=== PATIENT | male | born 1980 | race Caucasian/White ===

== ENCOUNTER 2016-12-18 02:01 | Inpatient (IN) | payer SELFPAY ==
[2016-12-18] MEDS ORDERED: LORazepam 2 MG/ML MDV IVPUSH ONE (02:25)
[2016-12-18] MEDS ORDERED: Sodium Chloride 0.9% 10 ML Syringe FLUSH PRN (02:30)
[2016-12-18] MEDS ORDERED: Sodium Chloride 0.9% 1,000 ML IV SCH ×2 (02:30→09:15)
[2016-12-18] MEDS ORDERED: Folic Acid 50 MG/10 ML Bulk Vial IV ONE (02:31)
[2016-12-18] MEDS ORDERED: Thiamine 200 MG/2 ML MDV IV ONE (02:31)
[2016-12-18] MEDS ORDERED: Ondansetron 4 MG/2 ML SDV IVPUSH ONE (02:43)
--- NOTE | 2016-12-18 03:03 | EDM.PDOC ---
ED HPI SEIZURE COMPLAINT - General Chief Complaint: Neuro Symptoms/Deficits Stated Complaint: seizure Time Seen by Provider: 12/18/16 02:23 Source of Information: Reports: Patient, Family History Limitations: Reports: No limitations - History of Present Illness INITIAL COMMENTS - FREE TEXT/NARRATIVE: Reports of seizure activity prior to arrival. EMS called and did bring in. He did have some emesis. Self identifies as a regular drinker. Finishes a large vodka bottle every 2-3 days, perhaps more frequently. Last drink was yesterday at approximately 7-8 am. Smokes 1/2-1 PPD. Denies any other drug use. Has had one other episode of seizure while detoxing in the past. Denies any medical history for himself. No reported hallucinations visually or auditory. Symptom Onset Date: 12/18/16 Event Occurred (Where): home Event (Witnessed/Unwitnessed): witnessed Severity: mild Context: Reports: recent ETOH Pre Event Symptom(s): Reports: no other symptoms Event Symptoms: Reports: nausea/vomiting - Related Data Allergies/ADRs: Allergies Allergy/AdvReac Type Severity Reaction Status Date / Time No Known Drug Allergies Allergy Other Verified 01/03/16 16:32 dog hair Allergy Severe Difficulty Uncoded 01/03/16 16:32 Breathing Home Meds: Home Meds . [No Known Home Meds] 01/03/16 [History] Past Medical History - Past Health History Medical/Surgical History: Denies Medical/Surgical History Psychiatric History: Reports: Addiction Social & Family History - Tobacco Use Smoking Status *Q: Current Every Day Smoker Years of Tobacco use: 3 Packs/Tins Daily: 1 Used Tobacco, but Quit: No Second Hand Smoke Exposure: Yes - Alcohol Use Days Per Week of Alcohol Use: 7 Number of Drinks Per Day: 10 Total Drinks Per Week: 70 - Recreational Drug Use Recreational Drug Use: Yes Drug Use in Last 12 Months: Yes Recreational Drug Type: Reports: Marijuana/Hashish ED ROS GENERAL - Review of Systems Review Of Systems: See Below Constitutional: Reports: no symptoms HEENT: Reports: No symptoms Respiratory: Reports: No Symptoms Cardiovascular: Reports: No symptoms Endocrine: Reports: no symptoms GI/Abdominal: Reports: Nausea, Vomiting : Reports: no symptoms Musculoskeletal: Reports: no symptoms Skin: Reports: no symptoms Neurological: Reports: Tremors Psychiatric: Reports: No symptoms Hematologic/Lymphatic: Reports: no symptoms Immunologic: Reports: no symptoms - Physical Exam Exam: See Below Exam Limited By: No limitations General Appearance: alert, WD/WN, mild distress Eye Exam: bilateral eye: EOMI, PERRL Throat/Mouth: Normal inspection, Normal lips, Normal teeth, Normal gums, Normal oropharynx Head Exam: atraumatic, normocephalic Respiratory/Chest: no respiratory distress, lungs clear, no accessory muscle use Cardiovascular: normal peripheral pulses, no edema, no murmur, tachycardia GI/Abdominal: normal bowel sounds, soft, non tender Neuro Exam (Abbreviated): alert, oriented, CN II-XII intact, normal cognition, other (tremors) Extremities: normal inspection, normal range of motion, non-tender Psychiatric: normal affect, normal mood Skin Exam: Warm, Dry, Intact, Normal color, No rash Course - Vital Signs Last Recorded V/S: Last Vital Signs Temp 38.1 C 12/18/16 02:21 Pulse 134 H 12/18/16 02:21 Resp 16 12/18/16 02:21 BP 151/92 H 12/18/16 02:21 Pulse Ox 94 L 12/18/16 02:21 - Orders/Labs/Meds Orders: Active Orders 24 hr Category Date Time Status Patient Status [ADT] Routine ADT 12/18/16 02:46 Ordered EKG Documentation Completion [RC] STAT Care 12/18/16 02:43 Ordered C-REACTIVE PROTEIN [CHEM] Stat Lab 12/18/16 02:26 Ordered CBC WITH AUTO DIFF [HEME] Stat Lab 12/18/16 02:26 Ordered CK W CKMB [CHEM] Stat Lab 12/18/16 02:43 Ordered COMPREHENSIVE METABOLIC PN,CMP [CHEM] Stat Lab 12/18/16 02:26 Ordered ETHANOL BLOOD MEDICAL [CHEM] Stat Lab 12/18/16 02:26 Ordered INR,PT,PROTHROMBIN TIME [COAG] Stat Lab 12/18/16 02:43 Ordered MAGNESIUM [CHEM] Stat Lab 12/18/16 02:47 Ordered TROPONIN I [CHEM] Stat Lab 12/18/16 02:43 Ordered UA W/MICROSCOPIC [URIN] Stat Lab 12/18/16 02:26 Uncollected Sodium Chloride 0.9% @ 150 MLS/HR (1000ml) Med 12/18/16 02:30 Ordered Sodium Chloride 0.9% [Normal Saline] 1,000 ml IV ASDIRECTED Sodium Chloride 0.9% [Saline Flush] Med 12/18/16 02:30 Ordered 10 ml FLUSH ASDIRECTED PRN Saline Lock Insert [OM.PC] Routine Oth 12/18/16 02:30 Ordered Medication Orders Sodium Chloride (Normal Saline) 1,000 mls @ 150 mls/hr IV ASDIRECTED GIOVANA Sodium Chloride (Saline Flush) 10 ml FLUSH ASDIRECTED PRN PRN Reason: Keep Vein Open Meds: Medications Generic Name Dose Route Start Last Admin Trade Name Freq PRN Reason Stop Dose Admin Sodium Chloride 1,000 mls @ 150 mls/hr 12/18/16 02:30 Normal Saline IV ASDIRECTED GIOVANA Sodium Chloride 10 ml 12/18/16 02:30 Saline Flush FLUSH ASDIRECTED PRN Keep Vein Open Discontinued Medications Generic Name Dose Route Start Last Admin Trade Name Freq PRN Reason Stop Dose Admin Folic Acid 1 mg 12/18/16 02:31 Folic Acid IV 12/18/16 02:32 ONETIME ONE Lorazepam 0.5 mg 12/18/16 02:25 12/18/16 02:37 Ativan IVPUSH 12/18/16 02:26 0.5 mg ONETIME ONE Administration Ondansetron HCl 4 mg 12/18/16 02:43 Zofran IVPUSH 12/18/16 02:44 ONETIME ONE Thiamine HCl 100 mg 12/18/16 02:31 Vitamin B-1 IV 12/18/16 02:32 ONETIME ONE Departure - Departure Time of Disposition: 03:56 Disposition: Refer to Observation Condition: fair Clinical Impression: Alcohol abuse, Alcohol withdrawal syndrome Forms: ED Department Discharge - Problem List & Annotations (1) Alcohol withdrawal syndrome SNOMED Code(s): 224411486 Code(s): F10.239 - ALCOHOL DEPENDENCE WITH WITHDRAWAL, UNSPECIFIED Status: Acute Priority: Medium Current Visit: Yes (2) Nausea and vomiting SNOMED Code(s): 39775543 Code(s): R11.2 - NAUSEA WITH VOMITING, UNSPECIFIED Status: Acute Priority : Medium Current Visit: No - Problem List Review Problem List Initiated/Reviewed/Updated: Yes - My Orders Last 24 Hours: My Active Orders 12/18/16 02:26 C-REACTIVE PROTEIN [CHEM] Stat CBC WITH AUTO DIFF [HEME] Stat COMPREHENSIVE METABOLIC PN,CMP [CHEM] Stat ETHANOL BLOOD MEDICAL [CHEM] Stat UA W/MICROSCOPIC [URIN] Stat 12/18/16 02:30 Sodium Chloride 0.9% @ 150 MLS/HR (1000ml) Sodium Chloride 0.9% [Normal Saline] 1,000 ml IV ASDIRECTED Sodium Chloride 0.9% [Saline Flush] 10 ml FLUSH ASDIRECTED PRN Saline Lock Insert [OM.PC] Routine 12/18/16 02:43 EKG Documentation Completion [RC] STAT CK W CKMB [CHEM] Stat INR,PT,PROTHROMBIN TIME [COAG] Stat TROPONIN I [CHEM] Stat 12/18/16 02:46 Patient Status [ADT] Routine 12/18/16 02:47 MAGNESIUM [CHEM] Stat - Assessment/Plan Last 24 Hours: My Active Orders 12/18/16 02:26 C-REACTIVE PROTEIN [CHEM] Stat CBC WITH AUTO DIFF [HEME] Stat COMPREHENSIVE METABOLIC PN,CMP [CHEM] Stat ETHANOL BLOOD MEDICAL [CHEM] Stat UA W/MICROSCOPIC [URIN] Stat 12/18/16 02:30 Sodium Chloride 0.9% @ 150 MLS/HR (1000ml) Sodium Chloride 0.9% [Normal Saline] 1,000 ml IV ASDIRECTED Sodium Chloride 0.9% [Saline Flush] 10 ml FLUSH ASDIRECTED PRN Saline Lock Insert [OM.PC] Routine 12/18/16 02:43 EKG Documentation Completion [RC] STAT CK W CKMB [CHEM] Stat INR,PT,PROTHROMBIN TIME [COAG] Stat TROPONIN I [CHEM] Stat 12/18/16 02:46 Patient Status [ADT] Routine 12/18/16 02:47 MAGNESIUM [CHEM] Stat Assessment:: ETOH withdrawals Plan: Patient is to be admitted to observation status during acute withdrawal period. Hypokalemic, hypomagnesemic. Will plan to hydrate, replenish electrolytes and vitamins. Initiate CIWA protocol.
[2016-12-18 03:28] LABS: CHLORIDE,CL 87 mmol/L (98-107); SODIUM,NA 142 mmol/L (136-145)
[2016-12-18] MEDS ORDERED: Magnesium Sulfate/Water 2 GM in Premix Bag 1 BAG IV ONE (03:39)
[2016-12-18] MEDS ORDERED: D5 1/2 NS w/ 40 mEq/L KCl 1,000 ML IV SCH ×2 (03:45)
[2016-12-18] MEDS ORDERED: Acetaminophen 325 MG Tab PO PRN (04:44)
[2016-12-18] MEDS ORDERED: Ibuprofen 200 MG Tab PO PRN (04:44)
[2016-12-18] MEDS ORDERED: Ondansetron 4 MG/2 ML SDV IV PRN (04:44)
[2016-12-18] MEDS: Nicotine 14 MG/24 Hr Patch TRDERM SCH ×2 (05:28→07:51)
[2016-12-18] MEDS: LORazepam 2 MG/ML MDV IVPUSH PRN ×9 (05:41→13:04)
[2016-12-18] MEDS ORDERED: Enoxaparin 30 MG/0.3 ML Syringe SUBCUT SCH ×2 (08:00→20:00)
[2016-12-18 13:24] LABS: CHLORIDE,CL 92 mmol/L (98-107); SODIUM,NA 140 mmol/L (136-145)
[2016-12-18] MEDS: Potassium Chloride 20 MEQ in Premix Bag 1 BAG IV SCH ×3 (13:37→17:43)
[2016-12-18] MEDS ORDERED: Labetalol 20 MG/4 ML Syringe IVPUSH ONE (13:43)
[2016-12-18] MEDS ORDERED: MVI, Adult with Vitamin K 10 ML, Folic Acid 1 MG, Thiamine 100 MG in Sodium Chloride 0.... IV SCH ×4 (13:45)
[2016-12-18] MEDS ORDERED: Potassium Chloride 10 MEQ Tab.ER PO ONE (15:24)
[2016-12-18] MEDS ORDERED: Sodium Chloride 0.9% with KCl 1,000 ML IV SCH (15:45)
[2016-12-18] MEDS ORDERED: Potassium Chloride 20 MEQ Tab.ER PO ONE (20:07)
[2016-12-18] MEDS: Potassium Chloride 10 MEQ Tab.ER PO SCH (20:49)
--- NOTE | 2016-12-18 23:03 | HP ---
CHIEF COMPLAINT: Alcohol withdrawal seizure. HISTORY OF PRESENT ILLNESS: This is a 36-year-old male with a history of known alcoholism with prior hospital admissions including 1 for intubation in the ICU in 01/2016 due to withdrawals. The patient had acute kidney injury and rhabdo at that time and MSSA pneumonia, which was all treated. Back in 2013, he was also admitted for alcohol when he made a suicide attempt with isopropyl alcohol and had a trazodone overdose as well. This resulted in the kidney injury but that recovered. His kidney function had been fine. He tells me he has no other health problems but has been prescribed blood pressure pills in the past but was not taking anything and then in 2012, he was also admitted for alcohol withdrawal with delirium tremens. At this time, his girlfriend states he had been drinking quite heavily with last drink early in the morning of the , then early in the morning of the around 2 o'clock, he had a witnessed seizure. They called the ambulance and he came in. His girlfriend and dad had been trying to encourage him to get help. The patient himself was able to wake up and visit with me this afternoon. He has been sleeping most of the day. The PA was covering him under observation, but due to significantly low hypokalemia and need for prolonged hospital stay, he asked me to admit to acute. He has gotten a total of 9 mg of Ativan since admission. The patient denies any abdominal pain. He was vomiting quite a bit prior to admission and once in the ER but has not vomited since. He denies any abdominal pain or nausea now. He denies any headache. Otherwise, he has been tachycardic. It is improved with IV fluids. PAST MEDICAL HISTORY: 1. Other than the alcoholism with previous treatments at [facility] in 2012 and the [facility]. 2. Essential hypertension. 3. History of delirium tremens. There was someone that reported he had previous seizures, but I did not find any documentation on the [place] site from it. He admits does not doctor routinely but has seen Dr. Reed or Kajal Hernandez. He has a history of adjustment disorder with depressed mood and the reported suicide attempt from trazodone. ALLERGIES: He has dog dander allergies but no medication allergies. MEDICATIONS: He has no medications that he takes on a routine basis by his report, but he has been prescribed Zoloft, nicotine patches, Norvasc, and metoprolol in the past along with multivitamins. FAMILY HISTORY: Includes mom who had an early , father has diabetes and high cholesterol. SOCIAL HISTORY: He is in a relationship with a girlfriend. 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 PAST SURGICAL HISTORY: He has had dental extractions. REVIEW OF SYSTEMS: General: As stated in the HPI. HEENT: No sore throat. Cardiac: No chest pain. No palpitations. Respiratory: No cough, no shortness of breath. Otherwise, all systems reviewed and found to be negative unless otherwise stated. PHYSICAL EXAMINATION: Vital Signs: Today, his temperature 99, blood pressure 122/77, heart rate 115, respiratory rate 24, O2 of 93% on room air. General: He is in no acute distress. Heart: Regular rate and rhythm with tachycardia. Lungs: Sounds are clear to auscultation bilaterally without crackles or wheezes. Abdomen: Positive bowel sounds. Soft and nontender. Extremities: Warm and dry. No edema. Mental Status: He was alert and orientated x3, answering all questions. His pupils were dilated but equal and reactive. Extraocular motor function was intact. ASSESSMENT: 1. Acute seizure likely due to alcohol withdrawal. The patient with longstanding history of drinking. His alcohol level was undetectable on admission. 2. Alcohol abuse and dependence. The patient is danger to himself. His drinking has resulted in renal failure and now seizures. I discussed with him I highly recommend treatment. He is not too sure if he wants to go back to treatment, but Radiology Assistant will be working with him. 3. Acute renal failure due to vomiting, probably poor intake with alcohol intoxication. This has resolved with IV fluids. 4. Smoking. 5. Pancreatitis with vomiting probably due to alcohol use. His lipase was at 655. His symptoms have improved. We will continue him n.p.o. for now. 6. Severe hypokalemia. He has been getting about a plan for 140 mEq so far of potassium today, of which he has only received 100. We will check the potassium level after 40 more given this evening, will order another oral dose at 6 p.m., since he is now able to take in p.o. intake. At least, he is alert enough to do so. If it causes any stomach irritation, we will give it more IV. I will switch his normal saline over to the 40 mEq of KCl and the fluids once he finishes his banana bag. 7. Hypomagnesemia. This has been replaced. 8. Rhabdomyolysis due to alcohol intoxication and renal failure. CK has trended down slightly. We can repeat that again tomorrow. 9. Elevated liver function tests, mild. I do not think he has any alcoholic hepatitis currently. His AST has trended down to 87. We will repeat that tomorrow. PLAN: At this point, the patient does drink about a large bottle of vodka every 2-3 days. He has a history of delirium tremens, but he is not having any hallucinations now. He has not had any seizures since admit. He needs hospital admission to continue beyond just observation as he will require more IV potassium and close monitoring with telemetry. Close monitoring for withdrawals. He is currently on CIWA every hour, working to get him medically stabilized so that hopefully he will go to some treatment. This plan was discussed with him and his girlfriend at the bedside. He is a code level 1. For DVT prophylaxis, he did get a shot of Lovenox. So, at this point, I am going to discontinue it due to his risk for bleeding given alcohol use and liver problems that can be associated with that. If he is not up and ambulatory tomorrow, we will get him started on some SCDs. MKA: 12/18/2016 17:07:29 MODL: 12/18/2016 22:56:18 /[id number]
[2016-12-19 07:03] LABS: CHLORIDE,CL 100 mmol/L (98-107); SODIUM,NA 141 mmol/L (136-145)
[2016-12-19] MEDS: Nicotine 14 MG/24 Hr Patch TRDERM SCH (08:03)
[2016-12-19] MEDS: Potassium Chloride 10 MEQ Tab.ER PO SCH ×2 (08:05→18:05)
[2016-12-19] MEDS: LORazepam 0.5 MG Tab PO PRN ×2 (08:55→19:36)
[2016-12-19] MEDS ORDERED: Escitalopram 10 MG Tab PO SCH (09:00)
--- NOTE | 2016-12-19 09:20 | PN ---
Progress Note for ROSALIO PISANO Date: 12/19/2016 Room #: VM.216 SUBJECTIVE: This is hospital day #2 on a 36-year-old admitted with alcohol withdrawal seizure. The patient has had improved CIWA scores. His last IV Ativan was yesterday at 1300 hours. He did receive 9 mg IV. He had been sleeping most yesterday, but he was able to be up, normally conversing with us, answering questions appropriately. He was denying any abdominal pain. He had no further vomiting. His potassium had failed to improve, and it was upgraded from observation to acute care. I loaded him with oral and IV potassium. It has improved up to 3.2 this morning. He otherwise has been on IV fluids. He was placed n.p.o. due to pancreatitis. His urine output was poor at only 550 mL over 24 hours. He did have some incontinent stools, but tells me he is not, he was just passing gas, because he had not gone for days. It does not seem to be diarrhea or anything infectious. He did have some fevers earlier on in his stay; however, 100.6 was the T-max. That was when he came in. He has had no further fevers since. He is not on any antibiotics. The patient is really not willing to go back to any kind of treatment, but he has no plans to try to leave the hospital against medical advise. OBJECTIVE: Vital Signs: His temperature is 98.1, pulse 87, blood pressure 127/80, respiratory rate 24, O2 of 94 on room air. General: He is in no acute distress. Heart: Regular rate and rhythm. S1, S2 without murmur. Lungs: Sounds are clear to auscultation bilaterally without crackles or wheezes. Abdomen: Positive bowel sounds. Soft and nontender. Extremities: Warm and dry. No edema. Mental Status: He is alert and oriented x3. LABORATORY DATA: Telemetry has showed improved rates now under 100. Last evening, he was having rates sometimes up into the 110s and 130s. Lab work today did show his white count to be normal at 4.3; hemoglobin dropped to 11.3, probably hemodilution; platelets 87. He did get 1 dose of Lovenox yesterday. This has been stopped. Drop in platelets is probably delusional as well, but also I am not surprised to have low platelets with longstanding alcohol use with MCV of 105. Sodium 141, potassium 3.2, chloride 100, bicarb 33, BUN 12, creatinine 0.8, bilirubin improved down to 2. AST up slightly to 102, albumin 3.2. ASSESSMENT: 1. Alcohol withdrawal seizure with longstanding history of alcoholism. He has been in treatment a couple of times. He has had no further seizures today. I am going to get him started on some p.r.n. oral Ativan. It has been at least 48 hours now since his last drink, but he still could have a chance for withdrawals. He is having no hallucinations, and he has had delirium tremens in the past. 2. Essential hypertension. He is not on medications. Blood pressures are acceptable. 3. History of smoking. He is on a nicotine patch. 4. Pancreatitis. He is not having any abdominal pain, will restart a diet today. As long as he is not having any symptoms, I do not feel repeating a lipase is necessary. 5. Severe hypokalemia, improving with oral and IV potassium. I am going to decrease his potassium to 20 mEq, so I can give him IV fluids faster and give him more oral potassium at 40 b.i.d. We will recheck a potassium and magnesium tomorrow. 6. Rhabdomyolysis. We will continue IV fluids. We will continue to monitor renal function. 7. Elevated liver function tests. This has been quite stable. We will repeat another panel in the morning. I do not feel that this is a clear case of alcoholic hepatitis, but the patient was discussed that he is at risk for liver problems due to drinking. PLAN: At this point, the patient is going to continue IV fluids. We will continue to monitor lab work. He will be working with delinquency prevention social worker. The potential is to even transfer him on a hold. At this point, he is depressed. He is willing to restart medications. I do not feel he is acutely suicidal, but we will continue to work with him through his medical illness and prepare a good plan for discharge for at least counseling and support. He is okay with me discussing this with his father. His girlfriend is at the bedside as well when we discussed this. MKA: 12/19/2016 08:48:39 MODL: 12/19/2016 09:13:17 /[id number]
[2016-12-19] MEDS: NS + KCl 20mEq/L 1,000 ML IV SCH ×3 (09:38→22:42)
[2016-12-19] MEDS: Citalopram 20 MG Tab PO SCH (14:10)
[2016-12-19] MEDS: [UNRECOGNIZED DRUG - REMARK] SCH (14:11)
[2016-12-20] MEDS: LORazepam 0.5 MG Tab PO PRN ×4 (02:18→16:20)
[2016-12-20] MEDS: NS + KCl 20mEq/L 1,000 ML IV SCH ×2 (05:04→14:38)
[2016-12-20 07:42] LABS: CHLORIDE,CL 102 mmol/L (98-107); SODIUM,NA 137 mmol/L (136-145)
[2016-12-20] MEDS: Citalopram 20 MG Tab PO SCH (07:56)
[2016-12-20] MEDS: Potassium Chloride 10 MEQ Tab.ER PO SCH ×2 (07:56→18:12)
[2016-12-20] MEDS: Nicotine 14 MG/24 Hr Patch TRDERM SCH (07:57)
[2016-12-20] MEDS: LORazepam 1 MG Tab PO SCH ×2 (08:23→21:07)
[2016-12-20] MEDS: Magnesium Oxide 400 MG Tab PO SCH (08:24)
--- NOTE | 2016-12-20 11:11 | PN ---
Progress Note for ROSALIO PISANO Date: 12/20/2016 Room #: VM.216 SUBJECTIVE: The patient has rested fairly well during the night. He does have a nicotine patch on. He is noted to be tremulous this morning. He has not had nausea or abdominal pain. He has not been up ambulating outside the room, yet he still been on telemetry. Objectively, he has had 2400 in yesterday and only 500 out. Over the last 12 hours, he has had 3800 in and 800 out. OBJECTIVE: Vital Signs: His temperature is 36.8; pulse is 75; blood pressure is 124/81, which has come down from 150/104 yesterday; respiratory rate is 20; saturations are 98%. General: The patient is tremulous. He is flushed. His pupils are dilated at 4 mm. He is alert, talkative. Heart: Regular rate and rhythm. Lungs: Clear to auscultation. Abdomen: Soft. Extremities: No edema. Neurologic: He appears slightly agitated. LABORATORY DATA: His lab came back with hemoglobin 11.2, white blood cell count 4.8, platelets 108, MCV is 103. His sodium was 137, potassium has improved to 4.1, creatinine 0.7. GFR is greater than 60. Magnesium came back low at 1.6, total bilirubin is improved to 1.4. AST has gone up to 137, ALT is 58, CK has gone up to 826, albumin is 3.1, lipase has been 665. Urine on admit had been quite concentrated with much protein present. IMPRESSION: 1. Acute alcohol withdrawal. 2. Delirium tremens. 3. Rhabdomyolysis. 4. Elevated liver function tests. 5. Alcohol abuse. 6. Acute kidney failure. 7. Pancreatitis, improving. 8. Hypokalemia, improving. 9. Hypomagnesemia, recurrent. PLAN: We will slow down the patient's IV fluid rate to have him drink more on his own. We will allow him to be up ambulating. We will place him on oral magnesium. We will also place him on oral thiamin. We will place him on scheduled Ativan. We will encourage activity up in the hallways. We will recheck lab tomorrow. We will reduce his IV rate to 75. We will check a urine test again on the patient. GM12/20/2016 08:16:27 MODL: 12/20/2016 11:06:42 /[id number]
[2016-12-20] MEDS: LORazepam 2 MG/ML MDV IVPUSH PRN (14:29)
[2016-12-20] MEDS: Thiamine 100 MG Tab PO SCH (21:07)
[2016-12-20] MEDS: [UNRECOGNIZED DRUG - REMARK] SCH (21:09)
[2016-12-21] MEDS: LORazepam 0.5 MG Tab PO PRN ×3 (02:54→17:53)
[2016-12-21] MEDS: NS + KCl 20mEq/L 1,000 ML IV SCH ×2 (03:00→16:38)
[2016-12-21 07:57] LABS: CHLORIDE,CL 104 mmol/L (98-107); SODIUM,NA 137 mmol/L (136-145)
[2016-12-21] MEDS: Citalopram 20 MG Tab PO SCH (08:19)
[2016-12-21] MEDS: Magnesium Oxide 400 MG Tab PO SCH ×2 (08:20→20:02)
[2016-12-21] MEDS: LORazepam 1 MG Tab PO SCH ×2 (08:20→20:02)
[2016-12-21] MEDS: Nicotine 14 MG/24 Hr Patch TRDERM SCH (08:20)
[2016-12-21] MEDS: Potassium Chloride 10 MEQ Tab.ER PO SCH ×3 (11:59→17:51)
--- NOTE | 2016-12-21 12:47 | PN ---
Progress Note for ROSALIO PISANO Date: 12/21/2016 Room #: VM.216 SUBJECTIVE: The patient was able to get up to ambulate yesterday. He did have a cyst on his back that his girlfriend had ruptured, so has had some bleeding for years he states. He says he is hungry. He still noted to be somewhat weak and unsteady. His blood pressure has also been borderline elevated. The patient yesterday was placed on scheduled Ativan twice a day. He did require an IV Ativan as well as an oral Ativan in addition for p.r.n. medicines CIAWA_AR. score is still elevated. OBJECTIVE: Vital Signs: His temperature is 36.7, pulse is 98, blood pressure is 141/72, respiratory rate 18, and saturations are 99%. General: Appears tremulous, somewhat agitated, uncomfortable. HEENT: Pupils are 4 mm, reactive. Pharynx is normal. Heart: Regular rate and rhythm. Lungs: Clear to auscultation BACK: left back, he does have an open skin are, abut 5 mm in size.to dermis, with dried blood on it. Abdomen: Soft. There is mild epigastric tenderness noted to palpation. EXT: No edema NEURO: tremors PSYCH: Appears slightly irritable. sad. LABORATORY DATA: Today came back showing that his magnesium still is low at 1.5. His hemoglobin was 12.1, MCV is 103, Pro time was still normal at 9.9 with INR of 0.9, PTT 22.4. Potassium was 4.2, sodium was 137, and his CK muscle enzyme is improved to 588 from 826 yesterday. AST was elevated at 133, ALT was 80. TSH was checked and it was 5.28 which normal here is 0.35 to 2.7 and it maybe due to coming through a withdrawal. Amylase was 101, but lipase was elevated at 1006, it had been 665 on 12/18/2016. Creatinine is normal. LFT shows still elevation of his AST as well as ALT has gone up. Amylase and lipase were also elevated. ASSESSMENT: 1. Alcohol withdrawal. 2. Elevated LFTs. 3. Hypomagnesemia. 4. Tremulousness. 5. Pancreatitis. 6. Rhabdomyolysis. 7. Abnormal thyroid test. 8. Nicotine addiction. 9. Blemish on back. PLAN: We will continue the patient on scheduled Ativan at the same dose. We will reduce his oral potassium. We will continue with IV fluids and at the same rate his diet should be little fat. Dr. Jesi Hernandez to resume care tomorrow. GM12/21/2016 11:43:50 MODL: 12/21/2016 12:20:57 /[id number]
[2016-12-21] MEDS: Thiamine 100 MG Tab PO SCH (20:02)
[2016-12-21] MEDS: [UNRECOGNIZED DRUG - REMARK] SCH (20:03)
[2016-12-21] MEDS: LORazepam 2 MG/ML MDV IVPUSH PRN ×2 (20:50→21:44)
[2016-12-22 07:22] LABS: CHLORIDE,CL 103 mmol/L (98-107); SODIUM,NA 135 mmol/L (136-145)
[2016-12-22] MEDS: Citalopram 20 MG Tab PO SCH (07:46)
[2016-12-22] MEDS: Potassium Chloride 10 MEQ Tab.ER PO SCH (07:48)
[2016-12-22] MEDS: Magnesium Oxide 400 MG Tab PO SCH ×2 (07:49→21:05)
[2016-12-22] MEDS: LORazepam 1 MG Tab PO SCH (07:51)
[2016-12-22] MEDS: Nicotine 14 MG/24 Hr Patch TRDERM SCH (07:52)
[2016-12-22] MEDS ORDERED: LORazepam 0.5 MG Tab PO ONE (08:45)
--- NOTE | 2016-12-22 09:50 | PN ---
Progress Note for ROSALIO PISANO Date: 12/22/2016 Room #: VM.216 SUBJECTIVE: This is hospital day #5 on a 36-year-old admitted with alcohol withdrawal seizure. The patient was doing quite well, but then over the weekend started withdrawing a little bit more. 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 He got scheduled Ativan 1 mg twice daily. He ended up getting like 3 doses of Ativan last evening, and then he says he was hallucinating that he was back in band or high school settings. He was still shaky this morning. We did give him a 0.5 mg of Ativan. Just immediately after that, he did have some hallucinations, but there were potentially some bedbugs. Otherwise, heart rates have improved. Urine output is good. Blood pressure is good. He is not having any fever. No abdominal pain. No nausea. No vomiting. OBJECTIVE: Vital Signs: His temperature is 98.4. Pulse 80. Blood pressure 118/74. Respiratory rate 20. O2 of 100% on room air. General: He is in no acute distress. Heart: Regular rate and rhythm. S1, S2 without murmur. Lungs: Sounds are clear to auscultation bilaterally without crackles or wheezes. Abdomen: Positive bowel sounds. Soft and nontender. Extremities: Warm and dry. No edema. He is mildly tremulous with his hands. Otherwise, he is alert and orientated x3. He is aware of the hallucinations he has had on the previous day. LABORATORY DATA: White count normal at 4.3, hemoglobin 12.7, platelets 192. Sodium 135, potassium 4.4, chloride 103, bicarb 22, BUN 5, glucose 121. CK improved down to 374, AST had leveled off yesterday at 1:30, ALT increased slightly to 116, bilirubin was normal at 1. CK improved down to 840. ASSESSMENT: 1. Alcohol withdrawal seizure. He has had no further episodes. We will give him a dose of 0.5 mg oral Ativan this morning due to frequent Ativan use yesterday to prevent any withdrawals. 2. Essential hypertension, not on medications. Blood pressures are good. 3. History of smoking. 4. Pancreatitis resolving. He is tolerating a diet. 5. Hypokalemia and hypomagnesemia, being replaced, improving. 6. Rhabdomyolysis, improving. 7. Hallucinations. The patient is likely outside the window for alcohol withdrawal and delirium tremens. Could be related somewhat to the Ativan. We will continue to monitor closely, anticipate. We will hold off transferring to outpatient chemical dependency and tell tomorrow, depending on how the day goes. His father is going to come up later and speak with him and the certified social workers in health care about it. The patient is definitely interested in going to some assessments for treatment. 8. Elevated liver testing, maybe a mild case of alcoholic hepatitis. We will repeat lab work tomorrow. PLAN: At this point, the patient will continue acute cares. He has been off IV fluids now. He was pulling at his IV. He does have a Hep-Lock still in place in case IV Ativan is needed. For his mood disorder, he has been started on Lexapro. We are going to arrange some outpatient services. He had already mentioned meeting with Allan Davis for DVT prophylaxis. He is going to be putting on the support stockings. He is going to be up and more ambulatory. MKA: 12/22/2016 08:54:58 MODL: 12/22/2016 09:43:43 /[id number]
[2016-12-22] MEDS: LORazepam 0.5 MG Tab PO PRN ×2 (11:52→21:09)
[2016-12-22] MEDS: [UNRECOGNIZED DRUG - REMARK] SCH (14:05)
[2016-12-22] MEDS: Thiamine 100 MG Tab PO SCH (21:05)
[2016-12-23 07:15] LABS: CHLORIDE,CL 103 mmol/L (98-107); SODIUM,NA 138 mmol/L (136-145)
[2016-12-23] MEDS ORDERED: Potassium Chloride 10 MEQ Tab.ER PO SCH (08:00)
[2016-12-23] MEDS: Magnesium Oxide 400 MG Tab PO SCH (08:09)
[2016-12-23] MEDS: Citalopram 20 MG Tab PO SCH (08:09)
[2016-12-23] MEDS: Nicotine 14 MG/24 Hr Patch TRDERM SCH (08:10)
[2016-12-23 10:13] VITALS: BP 125/78
--- NOTE | 2016-12-24 01:59 | DISCH ---
PRIMARY DISCHARGE DIAGNOSES: 1. Alcohol withdrawal seizure with no further episodes of seizure. 2. Delirium tremens with alcohol withdrawal with hallucinations requiring Ativan, improved and resolved on discharge. 3. Essential hypertension, blood pressure is under fair control, likely due to alcohol withdrawal not requiring medications on discharge. 4. History of smoking. 5. History of intubation due to alcohol withdrawals. 6. Rhabdomyolysis improving. 7. Hypokalemia and hypomagnesemia, replaced IV and orally. 8. Pancreatitis due to alcohol use resolving. 9. Elevated liver testing, mild alcoholic hepatitis with mildly increased ALT up to 151 on discharge with normalization of bilirubin and AST improved down to 108 from 130 on discharge. 10.Depression. REASON FOR ADMISSION: On the date of admission, this 36-year-old who had multiple previous admissions for alcohol withdrawal, had a seizure at home witnessed by members of his family, so 911 was called. He was brought into the hospital. The patient otherwise states that he had been drinking more due to depression. He had lost his mother. He had been suspended from work. He was treated with Ativan. He received over 9 mg on his first day, but gradually he received less. He slept a lot, but otherwise did well with no further seizures. He was not started on any seizure medications. He was given a nicotine patch. He was given IV magnesium and potassium. He was upgraded to acute care because of failure to improve in the potassium and need for prolonged stay. He did get some Ativan like 3 mg on Thursday evening, this led to some more confusion the next morning, but after receiving less Ativan like a total of 1 mg in the last 24 hours of discharge, he did quite well. He was able to have a conversation. He was asking questions appropriately. Initially, he was hesitant about going for any treatment options, but then later he was agreeable to going to [facility]. He would like to work with Allan Davis also for his depression and arrangements were made by social director for the patient to be taken over by family to go for assessment for further alcohol treatment. He has been inpatient before, he is not really desiring that at this point. He was also started on Celexa for his moods, which he tolerated. We also have given him magnesium oxide and thiamine on discharge. Otherwise, he received IV fluids. His creatinine which was increased up to 1.7 on admission improved down to 0.9 on discharge. He had good urine output. His platelets were mildly low at 108, but improved up to 192 on discharge and hemoglobin remained stable at 12.7. He had some mild fevers during this stay including on the day prior to discharge at a 100.3, but no source of infection was ever found. He had no cough, no abdominal pain, no shortness of breath, no burning with urination. PHYSICAL EXAMINATION: Vital signs: Discharge vitals, temp 98.7, pulse 101, blood pressure 118/82, respiratory rate 20, O2 of 100% on room air. General: He is in no acute distress. Heart: Regular rate and rhythm. S1, S2 without murmur. Lungs: Sounds are clear to auscultation bilaterally without crackles or wheezes. Abdomen: Positive bowel sounds. Soft and nontender. Extremities: Warm and dry. No edema. Support stockings in place. Mental Status: Alert and orientated x3. For DVT prophylaxis, he received a dose of Lovenox initially, but I discontinued it due to his low platelets. He was able to be up and ambulatory. He was using the support stockings. DISCHARGE PLANS AND INSTRUCTIONS: He is going to be following up with Dr. Hernandez in the clinic for 2 weeks for post hospital followup. He will have lab work including a CMP and a CBC at that time. He will see [facility] for further mental health followup for depression and alcohol abuse. He will not be driving over the next 2 weeks. We talked about restrictions and driving for him given the seizure, but this is likely an isolated incident related to the alcohol, as he has no further seizures. I do not feel his license will need to be revoked at this point. He does state he lives about 3 blocks from work and his girlfriend or father can drive him to other appointments. Greater than 30 minutes spent on the discharge process. MKA: 12/23/2016 09:38:55 MODL: 12/24/2016 01:51:32 /[id number]
== END 2016-12-23 11:15 | disposition home or self-care (01) | DRG 896 ==
LOC: VM.ED 02:01 → VM.MS 04:00 → OBSVTOIN 15:23
PROVIDERS: ADMIT Nurse Practitioner Family; ATTEND Internal Medicine
PROC: HZ2ZZZZ Detoxification Services for Substance Abuse Treatment (ICD-10-PCS; principal; 2016-12-18)
DX: F10.231 Alcohol dependence with withdrawal delirium (principal); K85.20 Alcohol induced acute pancreatitis without necrosis or infection; M62.82 Rhabdomyolysis; Y90.0 Blood alcohol level of less than 20 mg/100 ml; K70.10 Alcoholic hepatitis without ascites; I10 Essential (primary) hypertension; E87.6 Hypokalemia; E83.42 Hypomagnesemia; F32.9 Major depressive disorder, single episode, unspecified; F17.210 Nicotine dependence, cigarettes, uncomplicated
CPT/HCPCS: 36415; 80053; 80305; 81001; 82150; 82550; 82553; 82977; 83615; 83690; 83735; 84132; 84443; 84484; 85025; 85610; 85730; 86140; 93005; 96361; 96374; 96375; 99285; 99285-GF; A9270-GY; G0480; J1650; J2060; J2405; J3411; J3475; J3480; J7030; J7050

== ENCOUNTER 2017-03-19 16:50 | Inpatient (IN) | payer MEDICAID ==
[2017-03-19] MEDS ORDERED: Sodium Chloride 0.9% 1,000 ML IV ONE (17:06)
[2017-03-19] MEDS ORDERED: Ondansetron 4 MG/2 ML SDV IVPUSH ONE (17:07)
[2017-03-19] MEDS ORDERED: LORazepam 2 MG/ML SDV IVPUSH ONE (17:07)
[2017-03-19] MEDS ORDERED: Pantoprazole 40 MG Vial IVPUSH ONE (17:07)
[2017-03-19] MEDS ORDERED: MVI, Adult with Vitamin K 10 ML, Folic Acid 1 MG, Thiamine 100 MG in Sodium Chloride 0.... IV SCH ×4 (17:15)
[2017-03-19 18:02] LABS: CHLORIDE,CL 89 mmol/L (98-107); SODIUM,NA 134 mmol/L (136-145)
[2017-03-19] MEDS: Sodium Chloride 0.9% with KCl 1,000 ML IV SCH (18:35)
[2017-03-19] MEDS ORDERED: Ondansetron 4 MG/2 ML SDV IV PRN (18:38)
[2017-03-19] MEDS ORDERED: Magnesium Sulfate/Water 50 ML IV ONE (18:48)
[2017-03-19] MEDS ORDERED: LORazepam 2 MG/ML SDV IVPUSH PRN (18:51)
[2017-03-19] MEDS: Nicotine 14 MG/24 Hr Patch TRDERM SCH (19:58)
[2017-03-19] MEDS: LORazepam 2 MG/ML SDV IVPUSH PRN ×3 (20:20→22:06)
[2017-03-19] MEDS: Acetaminophen 325 MG Tab PO PRN (20:22)
[2017-03-19] MEDS ORDERED: LORazepam 2 MG/ML SDV ONE (20:22)
[2017-03-19] MEDS ORDERED: Magnesium Sulfate/Water 50 ML ONE (22:55)
[2017-03-20] MEDS: Sodium Chloride 0.9% with KCl 1,000 ML IV SCH ×3 (00:08→08:08)
[2017-03-20] MEDS: LORazepam 2 MG/ML SDV IVPUSH PRN ×5 (00:14→16:21)
[2017-03-20] MEDS ORDERED: LORazepam 2 MG/ML SDV IVPUSH ONE ×2 (00:25→13:02)
[2017-03-20] MEDS ORDERED: Ibuprofen 200 MG Tab PO PRN (01:22)
[2017-03-20] MEDS: Acetaminophen 325 MG Tab PO PRN ×3 (02:21→15:25)
--- NOTE | 2017-03-20 07:51 | ER ---
Date of Service: 03/19/2017 SUBJECTIVE: Lucio presents to the emergency room with complaints of tremulousness and alcohol withdrawal. The patient has a longstanding history of alcoholism and alcohol withdrawal and was last hospitalized in the beginning of December by Dr. Jesi Hernandez for the same. The patient was found to have low potassium as well as decreased magnesium and phosphorous. He was treated for delirium tremens and was hospitalized on 12/18 and was discharged on 12/22. He also was hospitalized at [facility] in 2012 as well as the [facility] for alcohol withdrawal as well. The patient was also treated for acute alcohol withdrawal in 2015. He was admitted in 12/2015 to [facility] with acute alcohol intoxication, withdrawal, acute kidney injury requiring intubation and ICU stay. After his last admission, he states that he has not followed up. He states that his last drink of alcohol was approximately 24 hours ago. He states that he consumes approximately half a liter of vodka per day. The patient states that he does have a history of previous seizure activity according to bystanders but he has not had a neurology evaluation for this. PAST MEDICAL HISTORY: 1. Alcoholism with previous admissions to [facility] and [facility]. 2. Essential hypertension. 3. History of delirium tremens requiring ICU stay and intubation in 01/2016. He also at that time had rhabdomyolysis and methicillin-susceptible pneumonia. 4. History of depression and suicide attempt in 2012. ALLERGIES: NKDA. He does have a history of allergy to dog hair as well as to eggs. MEDICATIONS: The patient has been prescribed Celexa and has also previously been prescribed Zoloft and Norvasc as well as metoprolol in the past, but he is not currently taking any of these medications. He also is supposed to be taking vitamin B12 and thiamine. FAMILY HISTORY: Father has diabetes. Mother has . SOCIAL HISTORY: Apparently, he is going through a break-up with his girlfriend. He is currently unemployed. REVIEW OF SYSTEMS: General: Denies any fever or chills. HEENT: No sore throat, rhinorrhea, or congestion. Respiratory: No shortness of breath. Cardiac: Denies any substernal chest pain. No jaw, arm, neck, or back pain. GI: Positive for vomiting, but no diarrhea. Denies any melena, hematochezia, or hematemesis. He does complain of some mild burning type sensation in his upper abdomen which he correlates to vomiting. PHYSICAL EXAMINATION: General: A 36-year-old male patient, who is in no acute distress. Vital Signs: Blood pressure is 142/85, heart rate is 130, temperature is 37.2, respiratory rate is 24, O2 saturation is 92% on room air. Skin: Warm, pink, and dry. HEENT: Mouth: Oral mucosa is dry. Eyes: PERRLA. Extraocular movements intact. No evidence of papilledema. Lungs: Clear to auscultation. Heart: Regular rate and rhythm. Normal S1, S2. No S3, S4, murmurs, clicks, or rubs. Abdomen: Soft, nontender. There is no hepatosplenomegaly noted. There are no masses noted. Extremities: Without edema. Neurologic: The patient is alert, answers all questions appropriately. Speech is not slurred. He does move all extremities independently. I did not assess his ability to stand or ambulate. LABORATORY DATA: WBCs 8.2, hemoglobin is 10.5, platelets are 204. Coags: PT is 12.3, INR is 1.1. Chemistry: Sodium is 131, potassium is 2.4, chloride is 89, bicarb is 34, BUN is 8, creatinine is 0.8. GFR is greater than 60. Glucose is 172. Lactic acid is 3.0. Calcium is 8.0, corrected calcium is 9.52. Phos is 2.3, magnesium is 1.4. Total bilirubin is 0.9, AST is 51, ALT is 13, alkaline phosphatase is 164. CK is 150. Total protein is 8.0, albumin is 2.1. TSH is 2.259. Blood alcohol still quite elevated at 189 despite not drinking since last night. EMERGENCY ROOM COURSE: IV access was established. He was initially given a liter of normal saline IV as he did appear to be acutely dehydrated. Following this, normal saline with 40 of KCl at 250 per hour was ordered as well as a banana bag. The patient was also given 80 mg of Protonix IV as well as 4 mg of Zofran IV in the emergency room. He was also given Ativan 1 mg IV as well and remained stable in my care in the emergency room. To note, urinalysis and urine drug screen were ordered and are pending at this time. ASSESSMENT: Acute alcohol intoxication and early delirium tremens. PLAN: I did speak with Dr. Ba regarding admission for this patient. The patient will be admitted acutely. He is a code level 1. He previously was supposed to follow up with Dr. Jesi Hernandez, so she will be listed as his primary care provider. He states that typically he sees whomever he can, but he does doctor through the [facility]. All questions were answered. MWK: 03/19/2017 18:32:01 MODL: 03/19/2017 19:23:15 /[id number]
[2017-03-20] MEDS ORDERED: Pantoprazole 40 MG Vial IVPUSH SCH (08:00)
[2017-03-20 08:03] LABS: CHLORIDE,CL 100 mmol/L (98-107); SODIUM,NA 138 mmol/L (136-145)
[2017-03-20] MEDS: Nicotine 14 MG/24 Hr Patch TRDERM SCH (08:08)
[2017-03-20] MEDS ORDERED: LORazepam 1 MG Tab PO PRN (08:17)
--- NOTE | 2017-03-20 08:54 | PN ---
Progress Note for ROSALIO PISANO Date: 03/20/2017 Room #: VM.215 SUBJECTIVE: A 36-year-old admitted last night with alcohol withdrawal. The patient was admitted back in December with the same reason. He had a seizure at that point. He has had previous admissions in [place] and intubations. He said he started vomiting and having fevers over the last couple of days. His last drink was on the evening of 03/18. He was drinking vodka again. He denies any stomach pain today. He denies any trouble breathing. He denies any skin rashes or sore throat. He has had fevers overnight up to 102.8. He has not been able to urinate and give drug screen, but denies any other drug use. Lipase was normal. CK was normal. Liver enzymes are mildly elevated, but already trending down. He did receive 5 mg of Ativan IV overnight, the last dose at 2 a.m. He tolerated a clear liquid diet for breakfast this morning. OBJECTIVE: Vital Signs: His temperature is 99.8, T-max is 102.8, last fever at 2:40, pulse is 114, it is up from 97 when he was sleeping, blood pressure 140/98, respiratory rate 24, O2 95 on room air. General: He is in no acute distress. Heart: Regular rate and rhythm. Lungs: Sounds are clear to auscultation, but decreased over the right base but without crackles. Abdomen: Has positive bowel sounds. Soft and nontender. Bladder was almost felt to be palpable. On bladder scan, he did have like 277. Extremities: Warm and dry. No edema. Mental Status: He is alert. He is orientated. He is aware that he is at the hospital. He seems to recognize me from his last admission. LABORATORY DATA: Lab work did show his white count to be normal at 5, hemoglobin decreased down to 8.2 from 10.5, probably some hemodilution, platelets 152. On his last visit on discharge, his hemoglobin was 12.7. Otherwise, his sodium is 138, potassium improved up to 3.4, chloride 100, bicarb 32, BUN 9, creatinine 0.7, calcium 7.8 but corrected 9.6. His albumin was only 1.7, bilirubin 1.3 up slightly, but AST down to 42, ALT down to 10, alkaline phosphatase down to 128, and magnesium improved to 1.9. Alcohol level on admission 189 down to 3 today. ASSESSMENT: 1. Alcoholism with acute alcohol withdrawal. The patient has a history of seizures. 2. Severe hypokalemia, replaced IV. We will slow down his fluids to 100 mL/h. I am going to hold off on any oral potassium at this point. We will recheck it tomorrow. 3. Hypomagnesemia, replaced IV. 4. Cough and fever. Chest x-ray has been ordered. 5. Elevated liver enzymes. Possibly mild alcoholic hepatitis. We will repeat a hepatic panel in the morning to get direct and indirect bilirubin. 6. Mild urinary retention. I think we will just give the patient some time to get up and moving around to see if he is able to pass urine. I do not think there is any indication for Luna at this time. 7. Smoking. Nicotine patch is ordered. 8. Acute anemia, possibly due to some hemodilution. There was no reports to me about hematemesis, but he had already been started on IV Protonix. At this point, I will order a stool test. If positive for blood, we will continue IV Protonix. If negative, we will discontinue and put him on oral Pepcid. Otherwise, I will repeat another hemoglobin this afternoon. PLAN: At this point, the patient will continue acute cares. I am going to order some oral Ativan for him as well. IV Ativan will still be available if needed. We will monitor electrolytes and liver tests and repeat in the morning. We will continue IV Protonix for now but if stool testing is negative, we will place him on oral Pepcid. Anticipate he will need at least another couple nights and Lighter Captain will return Thursday and should be involved with discharge planning for treatment as he admits he did not go last time voluntarily with family as was planned. He is now living with his father. For DVT prophylaxis, he is on SCDs. I did order incentive spirometry. We are awaiting chest x-ray and he is a code level 1. MKA: 03/20/2017 08:27:47 MODL: 03/20/2017 08:48:42 /[id number]
--- NOTE | 2017-03-20 09:15 | HP ---
CHIEF COMPLAINT: Alcohol withdrawal with tremors. HISTORY OF PRESENT ILLNESS: The patient is a 36-year-old male with history of significant alcoholism with repeated hospitalizations for alcohol withdrawal. He most recently had a hospitalization on 12/18/2016 until 12/23/2016 with having acute withdrawal with delirium tremens with withdrawal and hallucinations, which required Ativan, had hypertension, he has had a history of need for intubation with alcohol withdrawal in 2016 with ICU stay. He has had rhabdomyolysis in the past. He has had hypokalemia and pancreatitis in the past as well as elevated liver function tests. After patient's last hospitalization, he was going to follow up in the clinic and have outpatient chemical dependency. He did not follow through with this. He did not show up for his clinic appointment. He had not been driving for the next 2 weeks. The patient was to have been on Celexa for his mood, but he did not continue with this. The patient came in today because of having not consumed alcohol for about 12 hours. He normally consumes about half a liter day and he had run out of alcohol last night and could not afford anymore. He started to become more tremulous today. He did vomit x2. He was brought in by his father to the Emergency Room. He was initially seen by Del BARR. He was found to be tachycardic with pulse in the 130s. The patient was given a liter of IV fluids, as she looks dehydrated. He has seemed to become more tremulous and anxious, his potassium was noted to be low at 2.3. His blood alcohol despite having not drink for 24 hours, now was 0.189 and it was felt that he need to be safely withdrawn from alcohol to prevent further DTs. The patient received Ativan 1 mg in the emergency room as well as 4 of Zofran, Protonix 4 mg as well as some thiamin. The patient states that he would like to start to get treatment apparently had mentioned to the staff that he had just broken up with his girlfriend, which might be a contributing factor. MEDICATIONS: He is on none currently. ALLERGIES: None known to medicines. He is allergic to dog hair and eggs. PAST MEDICAL HISTORY: The patient had significant alcoholism with history of DTs. He was admitted prior at [place] as well as [facility]. He has had essential hypertension, DTs were noted to be in 2016. He has a history of adjustment disorder, depressed mood, he has had suicide attempts in the past with trazodone. The patient has had rhabdomyolysis in the past, pancreatitis related to alcohol use, had isopropyl alcohol poisoning, he has had previous history of acute kidney injury, alcohol dependence, methicillin sensitive pneumonia requiring intubation. PAST SURGICAL HISTORY: He has had dental extraction before. FAMILY MEDICAL HISTORY: His mother an early of I believe acute coronary syndrome. Father has diabetes and high cholesterol. SOCIAL HISTORY: He had broken up with his girlfriend. He smokes half-pack of cigarettes a day. He is not currently employed. He used to work. He helps with construction. REVIEW OF SYSTEMS: He has had a low-grade fever. Has a little headache, denies hallucination. No problems with bruising or swollen joints. He has not fallen no problems with memory. No cough. No chest pain. No abdominal pain. No dysuria. No bruising. No enlarged lymph glands. Mood is sad. PHYSICAL EXAMINATION: Vital Signs: The patient was noted to have a pulse of 130, blood pressure is 142/85, respirations 20, sats 92%, and temperature 99.2. Skin: [place], warm, diaphoretic. Generally: Appears somewhat tremulous as lying in the bed. HEENT: His pupils are dilated about 4 mm. Reactive to light. Conjunctivae are clear. Mucous membranes are still slightly dry on his lips. NECK: No anterior cervical adenopathy. Fetor hepaticus was present. There was no asterixis noted. Heart: Regular rate and rhythm without murmurs or bruits. Lungs: Clear to auscultation. Abdomen: Soft, nontender. No hepatosplenomegaly. No caput medusa present. Rectal: Deferred. EXTREMITIES: Slender, thin, does move all extremities symmetric. DIAGNOSTIC DATA: His lab shows a sodium is 134, potassium 2.3, creatinine 0.8. Glucose 172. GFR greater than 60. BUN 8. Lactic acid 3.0, calcium corrected is normal at 9.52, phosphorus 2.3 normal ranges 2.6 to 4.7, magnesium is 1.4. An AST is 51, ALT 113. Alkaline phosphatase 164, albumin is 2.1. TSH is 2.25. Blood alcohol is 0.189. Urinalysis is pending. IMPRESSION: 1. Acute alcohol intoxication. 2. Chronic alcoholism. 3. History of delirium tremens. 4. Hypomagnesemia. 5. Hypokalemia. 6. History of mood disorder. 7. Noncompliance with medical care. PLAN: The patient will be admitted to acute care. He will be given IV fluids, IV potassium, IV thiamine with a banana bag as well as IV magnesium. We will place him on a protocol for Ativan reduction. He will be placed on nicotine patch to help with nicotine withdrawal. He will be given Zofran to help with nausea as well as a Protonix had been given to the patient. The patient will need to be. The patient will be assumed by Dr. Jesi Hernandez had assumed care of him at his last discharge from the hospital. The patient is code level 1 status. To note, patient will not be placed on Lovenox because of risk of bleeding with elevated liver function tests and alcohol use. We will also get social service consult as well as spiritual service consult. It is felt patient does still have problems with grieving the of his mother from a few years ago. To note, his father did come to visit patient as well. GM03/19/2017 19:08:28 MODL: 03/20/2017 00:38:11 /[id number] KENNETH
[2017-03-20] MEDS ORDERED: Piperacillin/Tazobactam 4.5 GM in Sodium Chloride 0.9% 100 ML IV SCH (13:00)
--- NOTE | 2017-03-20 13:18 | PCM.SN ---
- Free Text/Narrative Note: Blood cultures and Zosyn ordered after I reviewed the CXR with new Right pleural effusion, PNA in was on the left. He has had continued fever and tachycardia. Lactic acid and hemoglobin due to be repeated. No stool for testing of blood yet. Urine had some blood and a few WBC we will send for clt. Sputum clt also ordered. Nurse updated patient was quite shaky still despite IV ativan 1 hr ago so we will repeat 1 mg IV now. I will round again later this afternoon. Lateral decubitus CXR ordered for review he may need a CT. We will monitor his respiratory status. He is not requiring oxygen.
[2017-03-20 17:01] VITALS: BP 135/79
--- NOTE | 2017-03-21 01:52 | DISCH ---
PRIMARY DISCHARGE DIAGNOSES: 1. Severe sepsis due to a right multilobar pneumonia with concern for loculated pleural effusion. Alcoholism with acute alcohol withdrawal and history of alcohol withdrawal seizures. 1. History of pneumonia with intubation in 12/2015, lifelong. 2. Severe hypokalemia, replaced IV. 3. Hypomagnesemia, replaced IV with discharging magnesium level at 1.9, discharging potassium level at 3.4. 4. Elevated liver enzymes with mild alcoholic hepatitis, trending down other than a slight increase in bilirubin to 1.3. 5. Acute anemia possibly due to hemodilution with stool testing negative for Hemoccult. He did receive IV Protonix during his stay. 6. History of hypertension, noncompliant with medications. 7. History of depression, noncompliant with medications. REASON FOR ADMISSION: On the date of admission, this 36-year-old came into the ER with his last drink being on the evening of 03/18. He had been drinking vodka again but reported he ran out of money. He had recently broken up with his girlfriend. He was found to have fevers up to 102.8, but his white count was normal, but had 84% neutrophils. He had initially denied cough but was acutely intoxicated with a blood alcohol level of 189, however, by the next morning, he admitted to coughing. He had also been vomiting. X-ray was done, which showed a significant right-sided infiltrate and effusion. He did have decreased lung sounds on that side. He did not have purulent sputum. He was started on IV Zosyn. His lactic initially was 3, but came down to 2.1 even before the IV antibiotics. Otherwise, he continued to spike fevers up to 102.9. He continued to be very tachycardic in the 130s and 140s. He required another 5 mg of Ativan, 4 were IV and 1 were p.o. On the day of transfer, he was running 16 to 17. He had gotten 5 mg of IV Ativan on the night of admission. Therefore, I discussed with the patient and his father given the pleural effusion that was not layering and concern for loculation. He would need a CT scan and even the possibility of a chest tube and further specialty care that could only be provided in [place] or another tertiary facility. Therefore, they were agreeable to transfer. I did discuss with Dr. Fontenot, accepting physician. The patient otherwise will be transferred ALS. He did receive a banana bag while he was here, but his next banana bag due this evening was canceled. He had a negative urine drug screen. He did have 10 to 20 RBCs on his urine test and 5 to 10 WBCs, but his creatinine was normal and he was eventually able to urinate. Creatinine was actually 0.7. DISCHARGE PLANS AND INSTRUCTIONS: The patient is going down to [place] for further care. Discharging vitals again were the temperature 102.9, pulse actually had improved slightly down to 125 at the time of the dictation, 135/79 was his blood pressure, respiratory rate 20, but at one point it had went up to 40. He was in no respiratory distress. When I examine him, his O2 was 97% on room air. Greater than 30 minutes spent on this transfer process. MKA: 03/20/2017 17:07:30 MODL: 03/21/2017 01:43:33 /[id number]
== END 2017-03-20 17:20 | disposition short-term general hospital (02) | DRG 896 ==
LOC: VM.ED 16:50 → VM.MS 18:12
PROVIDERS: ADMIT Family Medicine; ATTEND Internal Medicine
DX: F10.221 Alcohol dependence with intoxication delirium (principal); A41.9 Sepsis, unspecified organism; J18.9 Pneumonia, unspecified organism; R65.20 Severe sepsis without septic shock; J91.8 Pleural effusion in other conditions classified elsewhere; F10.239 Alcohol dependence with withdrawal, unspecified; Y90.6 Blood alcohol level of 120-199 mg/100 ml; E83.42 Hypomagnesemia; E87.6 Hypokalemia; E86.0 Dehydration; F17.210 Nicotine dependence, cigarettes, uncomplicated; Z91.14 Patient's other noncompliance with medication regimen; F43.29 Adjustment disorder with other symptoms; I10 Essential (primary) hypertension; D64.9 Anemia, unspecified; K70.10 Alcoholic hepatitis without ascites; R79.89 Other specified abnormal findings of blood chemistry; Z91.5 Personal history of self-harm; Z91.012 Allergy to eggs; Z91.048 Other nonmedicinal substance allergy status; Z53.29 Procedure and treatment not carried out because of patient's decision for other reasons; Z87.898 Personal history of other specified conditions
CPT/HCPCS: 36415; 71020; 71035; 80053; 80305; 81001; 82150; 82274; 82550; 83605; 83690; 83735; 84100; 84443; 85014; 85018; 85025; 85610; 87040; 87086; 96361; 96374; 96375; 99284-GF; 99285; A9270-GY; C9113; G0480; J2060; J2405; J2543; J3411; J3475; J3480; J7030; J7050

== ENCOUNTER 2018-06-12 23:10 | Observation (INO) | payer SELFPAY ==
[2018-06-12] MEDS ORDERED: Sodium Chloride 0.9% 10 ML Syringe FLUSH PRN (23:41)
[2018-06-12] MEDS ORDERED: Sodium Chloride 0.9% 1,000 ML IV ONE (23:43)
[2018-06-12] MEDS ORDERED: Ondansetron 4 MG/2 ML SDV IVPUSH ONE (23:43)
[2018-06-12] MEDS ORDERED: Pantoprazole 40 MG Vial IVPUSH ONE (23:56)
[2018-06-13 00:11] LABS: CHLORIDE,CL 96 mmol/L (98-107); SODIUM,NA 139 mmol/L (136-145)
[2018-06-13 00:14] LABS: ANION GAP 15.1 mmol/L (10-20)
[2018-06-13] MEDS ORDERED: Iopamidol 612 MG/ML 100 ML Bottle IVPUSH ONE (00:30)
[2018-06-13] MEDS ORDERED: cloNIDine 0.1 MG Tab PO PRN (02:19)
[2018-06-13] MEDS ORDERED: LORazepam 1 MG Tab PO PRN (02:19)
[2018-06-13] MEDS ORDERED: Magnesium Oxide 400 MG Tab PO ONE (02:19)
[2018-06-13] MEDS ORDERED: NS + KCl 20mEq/L 1,000 ML IV SCH (02:30)
--- NOTE | 2018-06-13 02:42 | EDM.PDOC ---
ED HPI GENERAL MEDICAL PROBLEM - General Chief Complaint: Drug or Alcohol Abuse Stated Complaint: Nausea / Vomiting Time Seen by Provider: 06/12/18 23:30 Source of Information: Reports: Patient, Family History Limitations: Reports: No Limitations - History of Present Illness INITIAL COMMENTS - FREE TEXT/NARRATIVE: Pt. presents to ER with complaints of abdominal discomfort, vomiting, and nausea. States that he relapsed back to alcohol this past Thursday. He states that he helped a friend move and injured his back in the process, and subsequently started drinking to deal with the pain. He states that he has consumed a half bottle of vodka nightly since Thursday. He states that today he developed diffuse, burning type abd. pain, nausea and vomiting. He feels that this is gastritis caused by alcohol. He states that her previously had been free of ETOH for 15-16 months. He states that he does feel somewhat agitated. Denies any melena, hematochezia, or hemetemesis. There were several discrepancies in his story between when he was examined by nursing and by me. He does, however, state that he only started drinking Thursday. Onset Date: 06/12/18 Location: Reports: Abdomen Quality: Reports: Burning Severity: Severe Associated Symptoms: Reports: Nausea/Vomiting Throat Pain Score (Numeric/FACES): 4 - Related Data Allergies Allergy/AdvReac Type Severity Reaction Status Date / Time No Known Drug Allergies Allergy Other Verified 06/13/18 01:41 dog hair Allergy Severe Difficulty Uncoded 03/19/17 17:04 Breathing EGGS Allergy Itching Uncoded 03/19/17 17:04 Home Meds: Home Meds . [No Known Home Meds] 03/19/17 [History] Past Medical History - Past Health History Medical/Surgical History: Denies Medical/Surgical History Gastrointestinal History: Reports: Other (See Below) Other Gastrointestinal History: abnormal liver enzymes Genitourinary History: Reports: Other (See Below) Other Genitourinary History: acute kidney injury/failure. prerenal azotemia. prerenal acute renal failure Musculoskeletal History: Reports: Other (See Below) Other Musculoskeletal History: rhabdomylosis. metacarpal fx Psychiatric History: Reports: Addiction, Other (See Below) Other Psychiatric History: ETOH abuse - Past Surgical History HEENT Surgical History: Reports: Other (See Below) Social & Family History - Tobacco Use Smoking Status *Q: Current Every Day Smoker Years of Tobacco use: 5 Packs/Tins Daily: 1 - Caffeine Use Caffeine Use: Reports: Soda - Recreational Drug Use Recreational Drug Use: No ED ROS GENERAL - Review of Systems Review Of Systems: See Below Constitutional: Reports: Fever HEENT: Reports: No Symptoms Respiratory: Reports: No Symptoms Cardiovascular: Reports: No Symptoms Endocrine: Reports: No Symptoms GI/Abdominal: Reports: Abdominal Pain. Denies: Black Stool, Bloody Stool, Constipation : Reports: No Symptoms Musculoskeletal: Reports: No Symptoms Skin: Reports: No Symptoms Neurological: Reports: No Symptoms Psychiatric: Reports: Anxiety Hematologic/Lymphatic: Reports: No Symptoms Immunologic: Reports: No Symptoms ED EXAM, GENERAL - Physical Exam Exam: See Below Exam Limited By: No Limitations General Appearance: Alert, WD/WN, No Apparent Distress Eye Exam: Bilateral Eye: EOMI, Normal Fundi, Normal Inspection, PERRL Nose: Normal Inspection, Normal Mucosa, No Blood Throat/Mouth: Normal Inspection, Normal Lips, Normal Teeth, Normal Gums, Normal Oropharynx, Normal Voice, No Airway Compromise Head: Atraumatic, Normocephalic Neck: Normal Inspection, Supple, Non-Tender, Full Range of Motion Respiratory/Chest: No Respiratory Distress, Lungs Clear, Normal Breath Sounds, No Accessory Muscle Use, Chest Non-Tender Cardiovascular: Normal Peripheral Pulses, Regular Rate, Rhythm, No Edema, No Gallop, No JVD, No Murmur, No Rub Peripheral Pulses: 4+: Radial (L), Radial (R) GI/Abdominal: Normal Bowel Sounds, Soft, No Organomegaly, No Distention, No Abnormal Bruit, No Mass, Pelvis Stable, Tender (Male) Exam: Deferred Rectal (Males) Exam: Deferred Back Exam: Normal Inspection, Full Range of Motion, NT Extremities: Normal Inspection, Normal Range of Motion, Non-Tender, Normal Capillary Refill, No Pedal Edema Neurological: Alert, Oriented, CN II-XII Intact, Normal Cognition, Normal Gait, Normal Reflexes, No Motor/Sensory Deficits Psychiatric: Normal Affect, Normal Mood Skin Exam: Warm, Dry, Intact, Normal Color, No Rash Lymphatic: No Adenopathy Course - Vital Signs Last Recorded V/S: Last Vital Signs Temp 37.0 C 06/13/18 02:20 Pulse 128 H 06/13/18 02:20 Resp 22 H 06/13/18 02:20 BP 170/96 H 06/13/18 02:20 Pulse Ox 98 06/13/18 02:20 - Orders/Labs/Meds Orders: Active Orders 24 hr Category Date Time Status Patient Status [ADT] Routine ADT 06/13/18 01:27 Active Abdomen Pelvis w Cont [CT] Stat Exams 06/13/18 00:20 Taken Sodium Chloride 0.9% [Saline Flush] Med 06/12/18 23:41 Active 10 ml FLUSH ASDIRECTED PRN Peripheral IV Insertion Adult [OM.PC] Routine Oth 06/12/18 23:42 Ordered Medication Orders Clonidine HCl (Catapres) 0.1 mg PO Q4H PRN PRN Reason: Agitation Folic Acid (Folic Acid) 1 mg PO DAILY [facility] Stop: 06/15/18 08:01 Potassium Chloride/Sodium Chloride (Normal Saline With 20 Meq Kcl) 1,000 mls @ 125 mls/hr IV ASDIRECTED [facility] Lorazepam (Ativan) 0 mg PO ASDIRECTED PRN; Protocol PRN Reason: Withdrawal Symptoms Magnesium Oxide (Magnesium Oxide) 400 mg PO ONETIME ONE Stop: 06/13/18 02:20 Multivitamins/Minerals (Thera M Plus) 1 tab PO DAILY [facility] Pantoprazole Sodium (Protonix) 40 mg PO DAILY [facility] Sodium Chloride (Saline Flush) 10 ml FLUSH ASDIRECTED PRN PRN Reason: Keep Vein Open Thiamine HCl (Vitamin B-1) 100 mg PO DAILY [facility] Labs: Laboratory Tests 06/12/18 06/12/18 06/12/18 Range/Units 23:44 23:44 23:44 WBC 21.0 H* (4.0-10.0) x10^3/uL RBC 5.89 (4.5-6.0) x10^6/uL Hgb 18.1 H D (14.0-18.0) g/dL Hct 49.7 (40.0-52.0) % MCV 84.4 D (78.0-93.0) fL MCH 30.7 (26.0-32.0) pg MCHC 36.4 H (32.0-36.0) g/dL RDW Coeff of Colten 13.0 (10.0-15.0) % Plt Count 282 D (130-400) x10^3/uL Add Manual Diff Yes Neutrophils % (Manual) 82 H (50-80) % Band Neutrophils % 4 (0-6) % Lymphocytes % (Manual) 11 L (25-50) % Monocytes % (Manual) 3 (2-11) % Platelet Estimate Adequate PT 11.2 (9.6-11.4) SEC INR 1.1 L (2.0-3.5) Sodium 139 (136-145) mmol/L Potassium 3.1 L (3.5-5.1) mmol/L Chloride 96 L (98-107) mmol/L Carbon Dioxide 31 (21-32) mmol/L Anion Gap 15.1 (10-20) mmol/L BUN 16 (7-18) mg/dL Creatinine 1.1 (0.70-1.30) mg/dL Est Cr Clr Drug Dosing TNP Estimated GFR (MDRD) > 60 Glucose 136 H (74-106) mg/dL Calcium 9.3 D (8.5-10.1) mg/dL Corrected Calcium 8.98 (8.5-10.1) mg/dL Phosphorus 2.7 (2.6-4.7) mg/dL Magnesium 1.8 (1.8-2.4) mg/dL Total Bilirubin 1.5 H (0.2-1.0) mg/dL AST 29 (15-37) U/L ALT 38 (16-63) U/L Alkaline Phosphatase 136 H (46-116) U/L C-Reactive Protein < 0.2 (<=0.9) mg/dL Total Protein 8.9 H (6.4-8.2) g/dL Albumin 4.4 (3.4-5.0) g/dL Globulin 4.5 Albumin/Globulin Ratio 0.98 Amylase 35 (25-115) U/L Lipase 69 L (73-393) U/L Ethyl Alcohol 7 H (0-3) mg/dL Meds: Medications Generic Name Dose Route Start Last Admin Trade Name Freq PRN Reason Stop Dose Admin Clonidine HCl 0.1 mg 06/13/18 02:19 Catapres PO Q4H PRN Agitation Folic Acid 1 mg 06/13/18 08:00 Folic Acid PO 06/15/18 08:01 DAILY [facility] Potassium Chloride/Sodium Chloride 1,000 mls @ 125 mls/hr 06/13/18 02:30 Normal Saline With 20 Meq Kcl IV ASDIRECTED [facility] Lorazepam 0 mg 06/13/18 02:19 Ativan PO ASDIRECTED PRN Withdrawal Symptoms Protocol Magnesium Oxide 400 mg 06/13/18 02:19 Magnesium Oxide PO 06/13/18 02:20 ONETIME ONE Multivitamins/Minerals 1 tab 06/13/18 08:00 Thera M Plus PO DAILY [facility] Pantoprazole Sodium 40 mg 06/13/18 08:00 Protonix PO DAILY [facility] Sodium Chloride 10 ml 06/12/18 23:41 Saline Flush FLUSH ASDIRECTED PRN Keep Vein Open Thiamine HCl 100 mg 06/13/18 08:00 Vitamin B-1 PO DAILY [facility] Discontinued Medications Generic Name Dose Route Start Last Admin Trade Name Freq PRN Reason Stop Dose Admin Sodium Chloride 1,000 mls @ 1,000 mls/hr 06/12/18 23:43 06/12/18 23:44 Normal Saline IV 06/13/18 00:42 1,000 mls/hr .BOLUS ONE Administration Iopamidol 100 ml 06/13/18 00:30 06/13/18 00:40 Isovue-300 (61%) IVPUSH 06/13/18 00:31 100 ml ONETIME ONE Administration Ondansetron HCl 4 mg 06/12/18 23:43 06/12/18 23:53 Zofran IVPUSH 06/12/18 23:44 4 mg ONETIME ONE Administration Pantoprazole Sodium 80 mg 06/12/18 23:56 06/13/18 00:05 Protonix Iv IVPUSH 06/12/18 23:57 80 mg ONETIME ONE Administration - Radiology Interpretation Free Text/Narrative:: some appendix wall thickening. No fat stranding noted. Also, some gallbladder wall thickness noted. Departure - Departure Time of Disposition: 02:30 Disposition: Refer to Observation Clinical Impression: Alcohol abuse, Alcohol withdrawal syndrome - Discharge Information - My Orders Last 24 Hours: My Active Orders 06/12/18 23:41 Sodium Chloride 0.9% [Saline Flush] 10 ml FLUSH ASDIRECTED PRN 06/12/18 23:42 Peripheral IV Insertion Adult [OM.PC] Routine 06/13/18 00:20 Abdomen Pelvis w Cont [CT] Stat 06/13/18 01:27 Patient Status [ADT] Routine - Assessment/Plan Admission H&P: Please use this note as an admission H&P Last 24 Hours: My Active Orders 06/12/18 23:41 Sodium Chloride 0.9% [Saline Flush] 10 ml FLUSH ASDIRECTED PRN 06/12/18 23:42 Peripheral IV Insertion Adult [OM.PC] Routine 06/13/18 00:20 Abdomen Pelvis w Cont [CT] Stat 06/13/18 01:27 Patient Status [ADT] Routine Plan: Will admit observation Klabo/Klabo. Code 1. NPO. Will institute CIWAA scoring and detox protocol. Will treat agitation with ativan. He received a liter of NS and zofran in ER, as well as protonix. Will continue both on the floor. I'm not 100% sure if he is being truthful about his alcohol use, as he is mildly agitated and states that he has only been drinking since Mon. Will also institute clonidine PRN for agitation/HTN as well. Will repeat CBC in 12 hours.
[2018-06-13] MEDS ORDERED: Thiamine 100 MG Tab PO SCH (08:00)
[2018-06-13] MEDS ORDERED: Folic Acid 1 MG Tab PO SCH (08:00)
[2018-06-13] MEDS ORDERED: Multivitamins with Iron/Calcium/Folic Acid/Minerals Tab PO SCH (08:00)
[2018-06-13] MEDS ORDERED: Pantoprazole 40 MG Tab.CR PO SCH (08:00)
[2018-06-13 12:25] LABS: CHLORIDE,CL 104 mmol/L (98-107); SODIUM,NA 143 mmol/L (136-145)
[2018-06-13 12:26] LABS: ANION GAP 10.5 mmol/L (10-20)
[2018-06-13 16:28] VITALS: BP 132/78
--- NOTE | 2018-06-22 20:51 | PCM.DCSUM1 ---
Discharge Summary - Hospital Course Free Text/Narrative:: Was admitted for detox and GI distress, nausea, and vomiting. States that he is feeling much better at discharge. No chest pain or shortness of breath. He is planning on starting sober. He only started drinking approx. 5 days ago. No chest pain or shortness of breath. Denies any abdominal discomfort nausea, or vomiting at time of discharge. Diagnosis: Stroke: No - Discharge Data Discharge Date: 06/12/18 Discharge Disposition: Home, Self-Care 01 Condition: Good - Discharge Diagnosis/Problem(s) (1) Alcohol abuse SNOMED Code(s): 11132836 ICD Code: F10.10 - ALCOHOL ABUSE, UNCOMPLICATED Status: Acute (2) Alcohol withdrawal syndrome SNOMED Code(s): 121566650 ICD Code: F10.239 - ALCOHOL DEPENDENCE WITH WITHDRAWAL, UNSPECIFIED Status : Acute (3) Hypokalemia SNOMED Code(s): 64443042 ICD Code: E87.6 - HYPOKALEMIA Status: Acute Problem Details: 2.3 - Discharge Plan Home Medications: Home Meds Multivitamin [Multivitamins] 1 each PO DAILY 06/13/18 [History] Patient Handouts: Alcohol Use Disorder Forms: ED Department Discharge Referrals: PCP,Unobtain [Primary Care Provider] - - Discharge Summary/Plan Comment DC Time >30 min.: Yes - General Info Date of Service: 06/22/18 Functional Status: Reports: Pain Controlled - Review of Systems General: Reports: No Symptoms HEENT: Reports: No Symptoms Pulmonary: Reports: No Symptoms Cardiovascular: Reports: No Symptoms Gastrointestinal: Reports: No Symptoms Genitourinary: Reports: No Symptoms Musculoskeletal: Reports: No Symptoms Skin: Reports: No Symptoms Neurological: Reports: No Symptoms Psychiatric: Reports: No Symptoms - Patient Data Vitals - Most Recent: Last Vital Signs Temp 37.1 C 06/13/18 16:27 Pulse 85 06/13/18 16:27 Resp 16 06/13/18 16:27 BP 132/78 06/13/18 16:27 Pulse Ox 98 06/13/18 16:27 Weight - Most Recent: 100.244 kg Med Orders - Current: Current Medications Discontinued Medications Clonidine HCl (Catapres) 0.1 mg PO Q4H PRN PRN Reason: Agitation Last Admin: 06/13/18 04:24 Dose: 0.1 mg Folic Acid (Folic Acid) 1 mg PO DAILY [facility] Stop: 06/15/18 08:01 Last Admin: 06/13/18 07:13 Dose: 1 mg Sodium Chloride (Normal Saline) 1,000 mls @ 1,000 mls/hr IV .BOLUS ONE Stop: 06/13/18 00:42 Last Admin: 06/12/18 23:44 Dose: 1,000 mls/hr Potassium Chloride/Sodium Chloride (Normal Saline With 20 Meq Kcl) 1,000 mls @ 125 mls/hr IV ASDIRECTED [facility] Last Admin: 06/13/18 03:21 Dose: 125 mls/hr Iopamidol (Isovue-300 (61%)) 100 ml IVPUSH ONETIME ONE Stop: 06/13/18 00:31 Last Admin: 06/13/18 00:40 Dose: 100 ml Lorazepam (Ativan) 0 mg PO ASDIRECTED PRN; Protocol PRN Reason: Withdrawal Symptoms Last Admin: 06/13/18 04:22 Dose: 1 mg Magnesium Oxide (Magnesium Oxide) 400 mg PO ONETIME ONE Stop: 06/13/18 02:20 Last Admin: 06/13/18 03:00 Dose: 400 mg Multivitamins/Minerals (Thera M Plus) 1 tab PO DAILY [facility] Last Admin: 06/13/18 07:13 Dose: 1 tab Ondansetron HCl (Zofran) 4 mg IVPUSH ONETIME ONE Stop: 06/12/18 23:44 Last Admin: 06/12/18 23:53 Dose: 4 mg Pantoprazole Sodium (Protonix Iv) 80 mg IVPUSH ONETIME ONE Stop: 06/12/18 23:57 Last Admin: 06/13/18 00:05 Dose: 80 mg Pantoprazole Sodium (Protonix) 40 mg PO DAILY [facility] Last Admin: 06/13/18 07:13 Dose: 40 mg Sodium Chloride (Saline Flush) 10 ml FLUSH ASDIRECTED PRN PRN Reason: Keep Vein Open Last Admin: 06/13/18 02:39 Dose: 10 ml Thiamine HCl (Vitamin B-1) 100 mg PO DAILY [facility] Last Admin: 06/13/18 07:13 Dose: 100 mg - Exam Quality Assessment: Reports: Supplemental Oxygen General: Reports: Alert, Oriented HEENT: Reports: Pupils Equal, Pupils Reactive, EOMI, Mucous Membr. Moist/[place] Neck: Reports: Supple Lungs: Reports: Clear to Auscultation, Normal Respiratory Effort Cardiovascular: Reports: Regular Rate, Regular Rhythm GI/Abdominal Exam: Normal Bowel Sounds, Soft, Non-Tender, No Organomegaly, No Distention, No Abnormal Bruit, No Mass, Pelvis Stable (Male) Exam: Deferred Rectal (Males) Exam: Deferred Back Exam: Reports: Normal Inspection, Full Range of Motion Extremities: Normal Inspection, Normal Range of Motion, Non-Tender, No Pedal Edema, Normal Capillary Refill Skin: Reports: Warm, Dry, Intact Neurological: Reports: No New Focal Deficit
== END 2018-06-13 17:20 | disposition home or self-care (01) ==
LOC: VM.ED 23:10 → VM.MS 06-13 01:27 → UNDOADMOB 06-13 02:00 → VM.MS 06-13 02:00 → UNDODISOB 06-13 17:20
PROVIDERS: ADMIT Physician Assistant; ATTEND Physician Assistant
DX: F10.10 Alcohol abuse, uncomplicated (principal); F10.239 Alcohol dependence with withdrawal, unspecified; K59.9 Functional intestinal disorder, unspecified; E87.6 Hypokalemia; F17.210 Nicotine dependence, cigarettes, uncomplicated; Z79.899 Other long term (current) drug therapy; Z91.012 Allergy to eggs; Z91.048 Other nonmedicinal substance allergy status; Y90.9 Presence of alcohol in blood, level not specified
CPT/HCPCS: 36415; 74177; 80053; 82150; 83690; 83735; 84100; 85025; 85610; 86140; 96361; 96374; 96375; 99285; A9270; C9113; G0378; G0480; J2405; J3480; J7030; J7050; Q9967; 96365; 96366

== ENCOUNTER 2019-04-20 21:19 | Emergency (ER) | payer SELFPAY ==
[2019-04-20] MEDS ORDERED: Lidocaine 1% 30 ML SDV INJECT ONE (21:32)
[2019-04-20] MEDS ORDERED: Take Home: Cephalexin 500 MG Cap, 4 Cap Pack PO ONE (22:44)
[2019-04-20] MEDS ORDERED: Take Home: Acetaminophen/HYDROcodone 325-5 MG, 5 Tab Pack PO ONE (22:44)
--- NOTE | 2019-04-21 00:04 | EDM.PDOC ---
ED HPI GENERAL MEDICAL PROBLEM - General Stated Complaint: LACERATION TO 2ND FINGER Time Seen by Provider: 04/20/19 21:20 Source of Information: Reports: Patient, Old Records, RN Notes Reviewed History Limitations: Reports: No Limitations - History of Present Illness INITIAL COMMENTS - FREE TEXT/NARRATIVE: Pt. states that the middle finger of his R hand was injured by the mower blade when he was adjusting his mower. He states that the injury was isolated to the R index finger. Pt. states that his tetanus is UTD. He states that the ROM at the DIP and PIP was preserved in the affected digit. Onset: Today Onset Date: 04/20/19 Location: Reports: Upper Extremity, Right Severity: Moderate - Related Data Allergies Allergy/AdvReac Type Severity Reaction Status Date / Time No Known Drug Allergies Allergy Other Verified 06/13/18 01:41 dog hair Allergy Severe Difficulty Uncoded 03/19/17 17:04 Breathing EGGS Allergy Itching Uncoded 03/19/17 17:04 Home Meds: Home Meds Multivitamin [Multivitamins] 1 each PO DAILY 06/13/18 [History] Past Medical History - Past Health History Medical/Surgical History: Denies Medical/Surgical History Gastrointestinal History: Reports: Other (See Below) Other Gastrointestinal History: abnormal liver enzymes Genitourinary History: Reports: Other (See Below) Other Genitourinary History: acute kidney injury/failure. prerenal azotemia. prerenal acute renal failure Musculoskeletal History: Reports: Other (See Below) Other Musculoskeletal History: rhabdomylosis. metacarpal fx Psychiatric History: Reports: Addiction, Other (See Below) Other Psychiatric History: ETOH abuse - Past Surgical History HEENT Surgical History: Reports: Other (See Below) Social & Family History - Caffeine Use Caffeine Use: Reports: Soda ED ROS GENERAL - Review of Systems Review Of Systems: See Below Constitutional: Reports: No Symptoms HEENT: Reports: No Symptoms Respiratory: Reports: No Symptoms Cardiovascular: Reports: No Symptoms Endocrine: Reports: No Symptoms GI/Abdominal: Reports: No Symptoms : Reports: No Symptoms Musculoskeletal: Reports: Hand Pain (middle finger R hand) Skin: Reports: No Symptoms ED EXAM, GENERAL - Physical Exam Exam: See Below Exam Limited By: No Limitations General Appearance: Alert, WD/WN, No Apparent Distress Extremities: Other (Stellate laceration to 3rd digit of R hand. There is also what appears to be a superficial abrasion to the dorsum of the same digit. Nail and nail bed appear to be intact. ) ED GENERAL MEDICAL PROCEDURES - Laceration/Wound Repair Right Digit - 3rd (Middle) Lac/wound length in cm: 3 Appearance: Subcutaneous, Heavily Contaminated Distal NVT: Neuro & Vascular Intact, No Tendon Injury Anesthetic Type: Digital Local Anesthesia - Lidocaine (Xylocaine): 1% Plain Local Anesthetic Volume: 4cc Skin Prep: Chlorhexidine (Hibiciens), Saline Saline irrigation (cc's): 1,000 Exploration/Debridement/Repair: Wound Explored, Explored to Base Closed with: Dermabond Course - Orders/Labs/Meds Orders: Active Orders 24 hr Category Date Time Status Fingers Third Digit Rt F7 [CR] Stat Exams 04/20/19 21:33 Taken Meds: Medications Discontinued Medications Generic Name Dose Route Start Last Admin Trade Name Freq PRN Reason Stop Dose Admin Hydrocodone Bitart/Acetaminophen 1 packet 04/20/19 22:44 04/20/19 23:00 Take Home: Acetam/Hydrocodon 325-5 Mg, 5 Pack PO 04/20/19 22:45 1 packet ONETIME ONE Administration Cephalexin 1 packet 04/20/19 22:44 04/20/19 23:00 Take Home: Cephalexin 500 Mg, 4 Cap Pack PO 04/20/19 22:45 1 packet ONETIME ONE Administration Lidocaine HCl 30 ml 04/20/19 21:32 04/20/19 21:40 Xylocaine-Mpf 1% INJECT 04/20/19 21:33 4 ml ONETIME ONE Administration - Radiology Interpretation Free Text/Narrative:: fracture of distal portion of 3rd digit of R hand with articular involvement at DIP. It is well approximated. Departure - Departure Time of Disposition: 23:00 Disposition: Home, Self-Care 01 Condition: Good Clinical Impression: Laceration, Phalanx, distal fracture of finger - Discharge Information Instructions: Acetaminophen; Hydrocodone tablets or capsules, Finger Fracture, Adult, [id number], Laceration Care, Adult, Cephalexin tablets or capsules, Stitches, David, or Adhesive Wound Closure, [id number] Referrals: PCP,None [Primary Care Provider] - Additional Instructions: Keep area for dry for 48 hours Keflex 500mg 1 4 times daily for 10 days [place] 5/325mg 1 every 4-6 hours as needed for pain Recheck in clinic in 10-14 days, sooner if redness, swelling, or discharge from the area. - My Orders Last 24 Hours: My Active Orders 04/20/19 21:33 Fingers Third Digit Rt F7 [CR] Stat - Assessment/Plan Last 24 Hours: My Active Orders 04/20/19 21:33 Fingers Third Digit Rt F7 [CR] Stat Plan: Keep area for dry for 48 hours Keflex 500mg 1 4 times daily for 10 days [place] 5/325mg 1 every 4-6 hours as needed for pain Recheck in clinic in 10-14 days, sooner if redness, swelling, or discharge from the area.
[2019-04-21 01:20] VITALS: BP 146/98; PULSE 72
--- NOTE | 2019-04-21 09:11 | CR ---
[id number] RAD/RAD Fingers Right EXAM: 3 VIEWS RIGHT FINGERS. INDICATION: INJURED FINGERTIP WITH LAWNMOWER THIRD DIGIT. COMPARISON: None. DISCUSSION: Acute nondisplaced fracture medial base of the distal 3rd phalanx. Fracture extends into the distal interphalangeal joint. No other fractures are identified. Old healed 5th metacarpal fracture. No dislocation. IMPRESSION: 1. Acute nondisplaced fracture of the distal 3rd tuft. Wolfgang Justin DO 04/21/19 0910 Thank you for allowing us to participate in the care of your patient.
== END 2019-04-20 23:09 | disposition home or self-care (01) ==
LOC: VM.ED 21:19
DX: S62.662A Nondisplaced fracture of distal phalanx of right middle finger, initial encounter for closed fracture (principal); S61.212A Laceration without foreign body of right middle finger without damage to nail, initial encounter; Z91.012 Allergy to eggs; Z91.048 Other nonmedicinal substance allergy status; W26.8XXA Contact with other sharp object(s), not elsewhere classified, initial encounter
CPT/HCPCS: 12002; 73140; 99283; A9270; J2001; 12001; 64450

== ENCOUNTER 2022-01-13 23:25 | Emergency (ER) | payer SELFPAY ==
[2022-01-13] MEDS ORDERED: Ibuprofen 200 MG Tab PO ONE (23:43)
[2022-01-13 23:45] VITALS: BP 148/101; PULSE 118
== END 2022-01-13 23:55 | disposition other institution (70) ==
LOC: VM.ED 23:25
DX: S20.219A Contusion of unspecified front wall of thorax, initial encounter (principal); Z91.048 Other nonmedicinal substance allergy status; Z91.012 Allergy to eggs; Y04.2XXA Assault by strike against or bumped into by another person, initial encounter
CPT/HCPCS: 99283; A9270-GY

== ENCOUNTER 2023-05-28 14:28 | Emergency (ER) | payer OTHER, BC ==
[2023-05-28] MEDS: Diphtheria,Pertussis(Acell),Tetanus Vaccine 0.5 ML Syringe IM ONE (14:44)
[2023-05-28 16:00] VITALS: BP 126/84; PULSE 89
== END 2023-05-28 14:53 | disposition home or self-care (01) ==
LOC: VM.ED 14:28
DX: S61.217A Laceration without foreign body of left little finger without damage to nail, initial encounter (principal); Z23 Encounter for immunization; Z91.048 Other nonmedicinal substance allergy status; Z91.012 Allergy to eggs; W23.0XXA Caught, crushed, jammed, or pinched between moving objects, initial encounter; Y92.89 Other specified places as the place of occurrence of the external cause; Y99.0 Civilian activity done for income or pay
CPT/HCPCS: 90471; 90715; 99282; 99282-25